=== PATIENT | female | born 1960 | race Caucasian/White ===

== ENCOUNTER 2016-11-09 11:09 | Emergency (ER) | payer BC ==
[2016-11-09 11:15] VITALS: RESP 18; O2SAT 95
[2016-11-09] MEDS ORDERED: PROPARACAINE 0.5% 15 ML OPHT DROP OP ONE (11:17)
--- NOTE | 2016-11-09 11:17 | EDPHY ---
H & P Time Seen by Provider: 11/09/16 11:17 HPI/ROS: CHIEF COMPLAINT: Right eye redness and pain HISTORY OF PRESENT ILLNESS: Yesterday got sunscreen in the right eye, today complains of pain redness and irritation in the right eye especially laterally. REVIEW OF SYSTEMS: Denies decrease in vision PAST MEDICAL HISTORY: Negative General Appearance: Alert, no distress. Visual acuity: noted from nursing notes. 20/20 in each eye. Lids and Lashes: No edema, no stye, no erythema. Conjunctivae: Injected on the right side with some yellow exudate. Sclera: No subconjunctival hemorrhage, no icterus. Pupils: Equal and round, normally reactive. Corneas: Right examined with fluoroscein, no uptake seen with slitlamp. No foreign body on surface of cornea. Anterior chamber: normal, no hyphema or hypopyon. External: No proptosis, no periorbital swelling or redness or tenderness. Emergency Department course/MDM: Likely chemical conjunctivitis. Will treat with antibiotic drops with yellow discharge. Fluorescein exam is normal and visual acuity is normal. Ophthalmology referral if not better in 24 hours. Smoking Status: Never smoked Constitutional: Initial Vital Signs Temperature (C) 36.6 C 11/09/16 11:11 Heart Rate 88 11/09/16 11:11 Respiratory Rate 18 11/09/16 11:11 Blood Pressure 126/80 H 11/09/16 11:11 O2 Sat (%) 95 11/09/16 11:11 O2 Delivery Mode Room Air Allergies/Adverse Reactions: seasonal Allergy (Uncoded 11/09/16 11:15) Home Medications: Medication Instructions Recorded Gentamicin 0.3% [Gentak 0.3% Opht 1 drop Q4 3 Days 11/09/16 Drops] MDM/Departure - MDM Medications Given: Discontinued Medications Proparacaine HCl (Alcaine 0.5%) 1 drops OP EDNOW ONE Stop: 11/09/16 11:18 Last Admin: 11/09/16 11:23 Dose: 1 drop - Depart Disposition: Home, Routine, Self-Care Clinical Impression: Acute conjunctivitis of right eye Qualifiers: Acute conjunctivitis type: toxic Qualified Code(s): H10.211 - Acute toxic conjunctivitis, right eye Condition: Good Instructions: Conjunctivitis (ED) Prescriptions: Gentamicin 0.3% [Gentak 0.3% Opht Drops] 1 drop Q4 3 Days Referrals: Dominique Perry MD [Primary Care Provider] - As per Instructions Sheila Garcia MD [Non Staff Provider (MD)] - 1 day, if not improved
[2016-11-09] MEDS ORDERED: PROPARACAINE 0.5% 15 ML OPHT DROP ONE (11:18)
[2016-11-09] MEDS ORDERED: FLUORESCEIN SODIUM 1 MG STRIP OP ONE (11:19)
[2016-11-09 11:55] VITALS: BP 115/78; PULSE 76; TEMP 97.5
== END 2016-11-09 11:54 | disposition home or self-care (01) ==
DX: T65.891A Toxic effect of other specified substances, accidental (unintentional), initial encounter (principal); H10.211 Acute toxic conjunctivitis, right eye

== ENCOUNTER → 2016-12-09 | Outpatient (CLI) | payer BC ==
[~2016-12-09] MED LIST: IOPAMIDOL (ISOVUE-300) 100 ML BTL IV ONE
== END ==
LOC: FIMAGING 14:23
DX: Z12.31 Encounter for screening mammogram for malignant neoplasm of breast (principal)
CPT/HCPCS: G0202; Q9967

== ENCOUNTER → 2017-01-28 | Outpatient (CLI) | payer BC | LOC: FIMAGING 12:35 | PROVIDERS: ATTEND Internal Medicine Endocrinology, Diabetes & Metabolism | DX: E04.1 Nontoxic single thyroid nodule (principal) ==

== ENCOUNTER → 2017-10-07 | Outpatient (CLI) | payer BC | LOC: FIMAGING 09:37 | PROVIDERS: ATTEND Internal Medicine Endocrinology, Diabetes & Metabolism | DX: E04.1 Nontoxic single thyroid nodule (principal) ==

== ENCOUNTER 2017-10-26 20:22 | Emergency (ER) | payer OTHER, BC ==
[2017-10-26 20:28] VITALS: TEMP 97.5
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
[2017-10-26 22:13] VITALS: BP 115/64; PULSE 86; RESP 16; O2SAT 95
== END 2017-10-26 22:11 | disposition home or self-care (01) ==
DX: S09.90XA Unspecified injury of head, initial encounter (principal); S16.1XXA Strain of muscle, fascia and tendon at neck level, initial encounter; V49.40XA Driver injured in collision with unspecified motor vehicles in traffic accident, initial encounter; Y92.410 Unspecified street and highway as the place of occurrence of the external cause; Y99.8 Other external cause status; Y93.89 Activity, other specified

== ENCOUNTER → 2017-12-23 | Outpatient (CLI) | payer BC | LOC: FIMAGING 10:02 | PROVIDERS: ATTEND Family Medicine | DX: Z12.31 Encounter for screening mammogram for malignant neoplasm of breast (principal) ==

== ENCOUNTER → 2018-01-22 | Outpatient (CLI) | payer BC | LOC: FIMAGING 07:12 | PROVIDERS: ATTEND Family Medicine | DX: N64.4 Mastodynia (principal) ==

== ENCOUNTER → 2018-09-24 | Outpatient (CLI) | payer BC, OTHER | LOC: FIMAGING 11:59 | PROVIDERS: ATTEND Internal Medicine Endocrinology, Diabetes & Metabolism | DX: E04.1 Nontoxic single thyroid nodule (principal) ==

== ENCOUNTER → 2019-01-07 | Outpatient (CLI) | payer OTHER | LOC: FIMAGING 07:42 | PROVIDERS: ATTEND Family Medicine | DX: Z12.31 Encounter for screening mammogram for malignant neoplasm of breast (principal); N64.4 Mastodynia ==